=== PATIENT | male | born 1985 | race African-American/Black ===

== ENCOUNTER 2025-01-24 09:07 | Emergency (ER) | payer OTHER ==
[~2025-01-24] VITALS: Ht 185.4 cm; Wt 73.0 kg
[2025-01-24 09:10] VITALS: O2SAT 98
[2025-01-24 09:13] VITALS: BP 116/71; PULSE 85; RESP 16; TEMP 36.7; O2SAT 98
[2025-01-24] MEDS ORDERED: MUPI1OIN4 TP (09:39)
== END 2025-01-24 10:30 | disposition admitted as inpatient to this hospital (09) ==
LOC: ER 09:07
DX: R21 Rash and other nonspecific skin eruption (principal)
CPT/HCPCS: 99283

== ENCOUNTER 2025-02-22 08:21 | Emergency (ER) | payer MEDICAID, OTHER ==
[~2025-02-22] VITALS: Ht 185.4 cm; Wt 89.0 kg
[~2025-02-22 08:21] MED LIST: MUPI1OIN4 TP
[2025-02-22 08:28] VITALS: O2SAT 100
[2025-02-22] MEDS ORDERED: MUPI22OI2 TP (09:20)
[2025-02-22 09:58] VITALS: BP 129/79; PULSE 64; RESP 16; TEMP 36.9; O2SAT 100
== END 2025-02-22 10:05 | disposition home or self-care (01) ==
LOC: ER 08:27
DX: R21 Rash and other nonspecific skin eruption (principal)
CPT/HCPCS: 99283

== ENCOUNTER 2025-03-25 23:50 | Emergency (ER) | payer MEDICAID ==
[~2025-03-25] VITALS: Ht 195.6 cm; Wt 88.0 kg
[~2025-03-25 23:50] MED LIST changes: +MUPI22OI2 TP
[2025-03-25 23:54] VITALS: O2SAT 98
[2025-03-25 23:57] VITALS: BP 115/63; PULSE 78; RESP 16; TEMP 36.7; O2SAT 98
== END 2025-03-26 01:46 | disposition home or self-care (01) ==
LOC: ER 23:50
DX: R56.9 Unspecified convulsions (principal); Z76.0 Encounter for issue of repeat prescription
CPT/HCPCS: 99281

== ENCOUNTER 2025-04-17 13:26 | Emergency (ER) | payer MEDICAID, OTHER ==
[~2025-04-17] VITALS: Ht 195.6 cm; Wt 83.9 kg
[2025-04-17 13:56] VITALS: O2SAT 99
[2025-04-17 15:05] LABS: BASOPHILS % 1.3 % (0.0-2.0); EOSINOPHILS % 2.8 % (0.0-5.0); HEMATOCRIT. 39.1 % (42.0-52.0); HEMOGLOBIN. 13.4 g/dL (14.0-18.0); LYMPHOCYTES % 33.3 % (20.0-50.0); MEAN PLATELET VOLUME 8.1 fl (7.4-10.4); MONOCYTES % 8.5 % (2.0-8.0); NEUTROPHILS % 54.1 % (40.0-76.0); PLATELET 227 x1000/uL (130-400); RED BLOOD CELL COUNT 4.24 mill/uL (4.7-6.1); RED CELL DISTRIBUTION WIDTH 13.7 % (11.6-14.6)
[2025-04-17 15:17] LABS: CREATININE 1.0 mg/dL (0.6-1.3)
[2025-04-17 15:18] LABS: TROPONIN I HIGH SENSITIVITY < 4 ng/L (3.0-53); UREA NITROGEN BLOOD 10 mg/dL (9-23)
[2025-04-17 15:19] LABS: ASPARTATE AMINOTRANSFERASE 20 IU/L (<34)
[2025-04-17 15:20] LABS: BILIRUBIN DIRECT 0.2 mg/dL (<=3.0); BILIRUBIN TOTAL 0.7 mg/dL (0.1-1.0); PROTEIN TOTAL 7.2 g/dL (6.0-8.3)
[2025-04-17] MEDS: KETOROLAC 15MG/ML VIAL IV ONE (15:30)
[2025-04-17] MEDS: SODIUM CHLORIDE 0.9% 1,000 ML IV ONE (15:30)
[2025-04-17] MEDS: ONDANSETRON HCL 4MG/2ML INJ IV ONE (15:30)
[2025-04-17] MEDS: ACETAMINOPHEN 500MG TABLET PO ONE (15:31)
[2025-04-17 17:02] VITALS: BP 120/77; PULSE 59; RESP 12; TEMP 36.6; O2SAT 100
== END 2025-04-17 17:21 | disposition home or self-care (01) ==
LOC: ER 13:26 → CANBEDREQ 17:08 → ER 17:21
DX: S06.0XAA Concussion with loss of consciousness status unknown, initial encounter (principal); R51.9 Headache, unspecified; Z98.890 Other specified postprocedural states; Z86.59 Personal history of other mental and behavioral disorders; Y04.0XXA Assault by unarmed brawl or fight, initial encounter; Y93.89 Activity, other specified; Y92.89 Other specified places as the place of occurrence of the external cause; Y99.8 Other external cause status
CPT/HCPCS: 80076; 80048; 83690; 85025; 84484; 36415; 71045; 70450; 93005; 96361; 96374; 96375; 99285; J1885; J2405; J7030; Z7610

== ENCOUNTER 2025-05-16 08:22 | Emergency (ER) | payer MEDICAID ==
[~2025-05-16] VITALS: Ht 195.6 cm; Wt 89.0 kg
[2025-05-16 08:26] VITALS: O2SAT 100
[2025-05-16] MEDS ORDERED: MUPI1OIN4 TP (08:43)
[2025-05-16] MEDS ORDERED: HYDR453.3 TP (08:43)
[2025-05-16] MEDS ORDERED: DIPH28.44 TP (08:43)
[2025-05-16 08:55] VITALS: BP 114/81; PULSE 64; RESP 16; TEMP 36.6; O2SAT 100
== END 2025-05-16 08:57 | disposition home or self-care (01) ==
LOC: ER 08:22
DX: L30.9 Dermatitis, unspecified (principal); I10 Essential (primary) hypertension; Z98.890 Other specified postprocedural states; Z79.899 Other long term (current) drug therapy
CPT/HCPCS: 99283

== ENCOUNTER 2025-07-12 10:18 | Emergency (ER) | payer MEDICAID ==
[~2025-07-12] VITALS: Ht 195.6 cm; Wt 86.0 kg
[~2025-07-12 10:18] MED LIST changes: +DIPH28.44 TP; +HYDR453.3 TP
[2025-07-12 10:37] VITALS: O2SAT 99
[2025-07-12] MEDS ORDERED: BRIV50TA MT (11:00)
[2025-07-12 11:35] VITALS: BP 144/80; PULSE 86; RESP 18; TEMP 37.1; O2SAT 99
== END 2025-07-12 11:36 | disposition home or self-care (01) ==
LOC: ER 10:18
DX: R56.9 Unspecified convulsions (principal); Z76.0 Encounter for issue of repeat prescription; Z79.899 Other long term (current) drug therapy; Z98.890 Other specified postprocedural states
CPT/HCPCS: 99282